=== PATIENT | male | born 1955 | race Caucasian/White ===

== ENCOUNTER 2022-04-06 07:59 | Outpatient (CLI) | payer MEDICARE, OTHER ==
[2022-04-06 09:20] LABS: ALT (SGPT) 16 U/L (8-55); AST (SGOT) 24 U/L (5-34); Albumin 3.9 g/dL (3.4-4.8); Alkaline Phosphatase 90 U/L (40-110); Anion Gap 13 mmol/L (10-20); BUN (Urea Nitrogen) 13 mg/dL (8.4-25.7); Bilirubin, Total 0.4 mg/dL (0.2-1.2); Calc. Creatinine Clearance 0 mL/min (70-130); Calcium 9.5 mg/dL (7.8-10.44); Carbon Dioxide 27 mmol/L (23-31); Cardiac Risk 2.6 (Less than 4.5); Chloride 104 mmol/L (98-107); Cholesterol 200 mg/dl (< 200 Desired); Estimated GFR 70; Globulin 3.4 g/dL (2.4-3.5); Glucose 100 mg/dL (80-115); HDL Cholesterol 78 mg/dL (>60 Neg Risk); LDL Cholesterol, Calculated 104 mg/dL; Protein, Total 7.3 g/dL (5.8-8.1); Sodium 138 mmol/L (136-145); Triglycerides 92 mg/dL (Less than 150)
[2022-04-06 16:30] LABS: Hemoglobin A1c 5.2 % (4.0-6.0)
== END 2022-04-06 08:00 | disposition home or self-care (01) ==
LOC: MADLAB 07:59
PROVIDERS: ATTEND Family Medicine
DX: E11.9 Type 2 diabetes mellitus without complications (principal)
CPT/HCPCS: 36415; 80053; 80061; 83036

== ENCOUNTER 2022-04-09 11:57 | Outpatient (CLI) | payer MEDICARE, OTHER ==
[2022-04-09 12:13] LABS: Potassium 5.3 mmol/L (3.5-5.1)
== END 2022-04-09 11:58 | disposition home or self-care (01) ==
LOC: MADLAB 11:57
PROVIDERS: ATTEND Family Medicine
DX: E87.5 Hyperkalemia (principal)
CPT/HCPCS: 36415; 84132